=== PATIENT | male | born 1960 | race Two or more races ===

== ENCOUNTER 2022-07-16 20:50 | Emergency (ER) | payer OTHER ==
[~2022-07-16] VITALS: Ht 185.4 cm; Wt 90.7 kg
[2022-07-16] MEDS ORDERED: IV NS 0.9% 1,000 ML BAG IV ONE (21:30)
[2022-07-16 21:35] LABS: BASOPHILS % (AUTO) 0.4 % (0.0-2.0); HEMATOCRIT 41 % (39-51); HEMOGLOBIN 13.8 g/dL (13.5-17.5); LYMPHOCYTES # (AUTO) 1.9 K/uL (0.8-4.8); MEAN CORPUSCULAR HGB CONC 34 g/dl (31.0-36.0); MEAN CORPUSCULAR VOLUME 89 fL (80-96); MONOCYTES # (AUTO) 0.6 K/uL (0.1-1.30); MONOCYTES % (AUTO) 9.1 % (2.0-12.0); NEUTROPHILS # (AUTO) 4.3 K/uL (1.8-8.9); NEUTROPHILS % (AUTO) 62.5 % (43.0-81.0); PLATELET COUNT (AUTO) 242 K/uL (150-450); RED BLOOD CELL COUNT(AUTO) 4.59 MIL/uL (4.5-6.0); WHITE BLOOD COUNT (AUTO) 6.9 K/uL (4.3-11.0)
[2022-07-16 21:55] LABS: SERUM AMMONIA 13 umol/L (11-32)
[2022-07-16 22:08] LABS: ALANINE AMINOTRANSFERASE 12 U/L (12-78); ALBUMIN 3.3 g/dL (3.4-5.0); ALCOHOL, BLOOD 195 mg/dL (0-0); ALKALINE PHOSPHATASE 80 U/L (46-116); ASPARTATE AMINOTRANSFERASE 24 U/L (15-37); BILIRUBIN,DIRECT 0.2 mg/dL (0.0-0.2); BILIRUBIN,TOTAL 0.4 mg/dL (0.2-1.0); CALCIUM, SERUM 7.8 mg/dL (8.5-10.1); CARBON DIOXIDE 28 mmol/L (21-32); CHLORIDE 98 mmol/L (98-107); CREATININE 0.8 mg/dL (0.6-1.3); GLUCOSE 129 mg/dL (74-106); POTASSIUM 3.4 mmol/L (3.5-5.1); SODIUM SERUM 134 mmol/L (136-145); TOTAL PROTEIN, SERUM 6.4 g/dL (6.4-8.2); UREA NITROGEN, BLOOD 9 mg/dL (7-18)
--- NOTE | 2022-07-16 23:57 | NUR ---
AUTH# FOR TRANSPORT [id number]
--- NOTE | 2022-07-17 00:37 | NUR ---
COVID SWAB DONE AND SENT TO LAB
--- NOTE | 2022-07-17 01:35 | NUR ---
PT ACCEPTED TO [facility] BY DR DUGGAN. BED 605. #FOR REPORT [phone].
--- NOTE | 2022-07-17 01:44 | NUR ---
[facility]WEST 30-40 MINUTES
--- NOTE | 2022-07-17 02:00 | NUR ---
REPORT GIVEN TO KEVEN PATTON AT [facility]
--- NOTE | 2022-07-17 02:48 | NUR ---
PATIENT BEING TRANSFERRED TO [facility] VIA AMBULANCE
[2022-07-17 03:00] VITALS: BP 154/77
== END 2022-07-17 03:01 | disposition short-term general hospital (02) ==
LOC: ER 20:52
DX: R53.1 Weakness (principal); R94.8 Abnormal results of function studies of other organs and systems; Z20.822 Contact with and (suspected) exposure to COVID-19; E11.65 Type 2 diabetes mellitus with hyperglycemia; F10.129 Alcohol abuse with intoxication, unspecified; Y90.6 Blood alcohol level of 120-199 mg/100 ml; Z59.00 Homelessness unspecified; I67.2 Cerebral atherosclerosis; I10 Essential (primary) hypertension
CPT/HCPCS: 99285; 96360; 93005; 71045; 70450; 82140; 85025; 80048; 80076; 36415; 84443; 84484; 87081; 82962; 87426; 80320; J7030; C9803; G0480

== ENCOUNTER 2022-07-22 17:22 | Emergency (ER) | payer OTHER ==
[~2022-07-22] VITALS: Ht 185.4 cm; Wt 91.2 kg
--- NOTE | 2022-07-22 17:37 | NUR ---
[address]VIN [address]RE[address] FOR ETOH. PT ADMITS TO DRINKING. PT PLACED IN BED AND MONITOR. [id number]. AWAITING MD ORDERS.
--- NOTE | 2022-07-22 17:45 | NUR ---
BEHAVIORAL HEALTH CLINICIAN AT BEDSIDE
[2022-07-22 17:56] LABS: BASOPHILS % (AUTO) 0.6 % (0.0-2.0); EOSINOPHILS % (AUTO) 1.2 % (0.0-6.0); HEMATOCRIT 44 % (39-51); HEMOGLOBIN 14.4 g/dL (13.5-17.5); LYMPHOCYTES # (AUTO) 1.5 K/uL (0.8-4.8); LYMPHOCYTES % (AUTO) 26.1 % (20.0-44.0); MEAN CORPUSCULAR HGB CONC 33 g/dl (31.0-36.0); MEAN CORPUSCULAR VOLUME 90 fL (80-96); MONOCYTES # (AUTO) 0.6 K/uL (0.1-1.30); MONOCYTES % (AUTO) 10.7 % (2.0-12.0); NEUTROPHILS # (AUTO) 3.6 K/uL (1.8-8.9); NEUTROPHILS % (AUTO) 61.4 % (43.0-81.0); PLATELET COUNT (AUTO) 218 K/uL (150-450); RED BLOOD CELL COUNT(AUTO) 4.84 MIL/uL (4.5-6.0); WHITE BLOOD COUNT (AUTO) 5.8 K/uL (4.3-11.0)
[2022-07-22 18:21] LABS: ALBUMIN 3.4 g/dL (3.4-5.0); BILIRUBIN,DIRECT 0.3 mg/dL (0.0-0.2); BILIRUBIN,TOTAL 0.9 mg/dL (0.2-1.0); CALCIUM, SERUM 8.2 mg/dL (8.5-10.1); CREATININE 0.8 mg/dL (0.6-1.3); POTASSIUM 3.4 mmol/L (3.5-5.1); TOTAL PROTEIN, SERUM 6.6 g/dL (6.4-8.2)
--- NOTE | 2022-07-22 19:00 | NUR ---
PATIENT TAKEN TO CT VIA TOSIN
--- NOTE | 2022-07-22 19:56 | NUR ---
URINE SAMPLE SENT TO LAB
[2022-07-22 20:41] LABS: BILIRUBIN,URINE NEGATIVE (NEGATIVE); COLOR,URINE YELLOW (YELLOW); LEUKOCYTE ESTERASE ,URINE NEGATIVE (NEGATIVE); NITRITE, URINE NEGATIVE (NEGATIVE); PROTEIN,URINE NEGATIVE (NEGATIVE); UGLUCOSE NEGATIVE (NEGATIVE); UROBILINOGEN,URINE 0.2 EU/dL (0.2)
[2022-07-22 21:12] LABS: BACTERIA,URINE None seen /HPF (None Seen); MUCUS,URINE Few /LPF (None Seen); SQUAMOUS EPITHELIAL CELL,UR 0-2 /HPF (None Seen); WBC,URINE 0-2 /HPF (0-3)
--- NOTE | 2022-07-23 06:00 | NUR ---
Patient discharged to home in stable condition. Written and verbal after care instructions given. Patient verbalizes understanding of instruction.
[2022-07-23 07:07] VITALS: BP 121/60
== END 2022-07-23 07:08 | disposition home or self-care (01) ==
LOC: ER 18:31
DX: F10.129 Alcohol abuse with intoxication, unspecified (principal); R41.82 Altered mental status, unspecified; M54.2 Cervicalgia; I48.91 Unspecified atrial fibrillation; Y90.4 Blood alcohol level of 80-99 mg/100 ml
CPT/HCPCS: 36415; 70450-TC; 72125-TC; 80048-TC; 80076-TC; 81001; 85025-TC; G0480